=== PATIENT | female | born 1935 | race Caucasian/White ===

== ENCOUNTER 2024-10-31 12:40 | Inpatient (IN) | payer MEDICARE, MEDICAID ==
[~2024-10-31] VITALS: Ht 154.9 cm; Wt 57.7 kg
[2024-10-31 13:24] LABS: BASOPHILS % (AUTO) 0.1 % (0.0-2.0); EOSINOPHILS % (AUTO) 0.3 % (1.0-6.0); HEMATOCRIT 28.9 % (36-46); HEMOGLOBIN 9.3 g/dL (12.0-16.0); LYMPHOCYTES % (AUTO) 8.5 % (22.0-44.0); MEAN CORPUSCULAR HEMOGLOBIN 28.3 pg (26.0-34.0); MEAN CORPUSCULAR HGB CONC 32.2 G/dL (31.0-37.0); MEAN CORPUSCULAR VOLUME 88 fL (80-100); MONOCYTES # (AUTO) 0.4 K/uL (0.1-1.0); MONOCYTES % (AUTO) 3.8 % (2.0-9.0); NEUTROPHILS # (AUTO) 10.4 K/uL (1.8-7.7); PLATELET COUNT (AUTO) 243 K/uL (150-450); RED BLOOD CELL COUNT(AUTO) 3.29 MIL/uL (4.00-5.20); RED CELL DISTRIBUTION WIDTH 16.6 % (11.5-14.5); WHITE BLOOD COUNT (AUTO) 11.9 K/uL (4.5-11.0)
[2024-10-31 13:27] LABS: NEUTROPHILS % (AUTO) 87.3 % (40.0-70.0)
[2024-10-31 13:35] LABS: ANION GAP 5 mmol/L (8-16); CALCIUM, TOTAL 8.6 mg/dL (8.8-10.5); CARBON DIOXIDE 22 mmol/L (22-29); CHLORIDE 107 mmol/L (98-107); CREATININE 0.85 mg/dL (0.60-1.30); GLOMERULAR FILTR. RATE CALC > 60 mL/min (>60); GLUCOSE,RANDOM 93 mg/dL (70-110); POTASSIUM 5.2 mmol/L (3.5-5.1); SODIUM SERUM 134 mmol/L (136-145); UREA NITROGEN, BLOOD 20 mg/dL (7-18)
[2024-10-31 13:40] LABS: ALBUMIN 2.4 g/dL (3.4-5.0); BILIRUBIN,DIRECT 0.2 mg/dL (0.00-0.20); BILIRUBIN,TOTAL 0.5 mg/dL (0.1-1.0); TOTAL PROTEIN, SERUM 7.1 g/dL (6.4-8.2)
[2024-10-31 13:43] LABS: TROPONIN I-HIGH SENSITIVITY 7 ng/L (<51)
[2024-10-31] MEDS: SODIUM CHLORIDE 0.9% 1,550 ML IV ONE (13:52)
[2024-10-31] MEDS: CefTRIAXone 1 GM/DEXTROSE 50 ML IV ONE (13:52)
[2024-10-31 14:23] LABS: PROTHROMBIN TIME 10.4 SEC (9.4-11.6)
[2024-10-31 14:42] LABS: COVID AG,FIA SOURCE NASAL SWAB
[2024-10-31 15:09] LABS: SARS-COV2 (COVID) ANTIGEN,FIA Negative (Negative)
[2024-10-31 15:15] LABS: INFLUENZA TYPE A NEGATIVE FOR TYPE A (NEGATIVE); INFLUENZA TYPE B NEGATIVE FOR TYPE B (NEGATIVE)
[2024-10-31 18:37] LABS: APPEARANCE,URINE CLEAR (CLEAR); BILIRUBIN,URINE NEGATIVE (NEGATIVE); COLOR,URINE LIGHT YELLOW (YELLOW); GLUCOSE, URINE (UA) NEGATIVE (NEGATIVE); KETONES,URINE NEGATIVE (NEGATIVE); LEUKOCYTE ESTERASE ,URINE SMALL (NEGATIVE); NITRATE,URINE POSITIVE (NEGATIVE); OCCULT BLOOD,URINE NEGATIVE (NEGATIVE); PROTEIN,URINE NEGATIVE (NEGATIVE); UROBILINOGEN,URINE <=1.0 mg/dL (<=1.0)
[2024-10-31 19:31] LABS: BACTERIA,URINE Many /HPF (None Seen); RBC,URINE 0-2 /HPF (0-2)
[2024-10-31 19:32] LABS: SQUAMOUS EPITHELIAL CELL,UR Rare /LPF (None Seen)
[2024-10-31] MEDS ORDERED: ATOR20TA65 PO (21:01)
[2024-10-31] MEDS ORDERED: VIT1CAPS47 PO (21:01)
[2024-10-31] MEDS ORDERED: DONE-52 PO (21:01)
[2024-10-31] MEDS ORDERED: BRIM5DRO10 OU (21:01)
[2024-10-31] MEDS ORDERED: CHOL500045 PO (21:01)
[2024-10-31] MEDS ORDERED: ASPI-1444 PO (21:01)
[2024-10-31] MEDS ORDERED: AMLO2.5T29 PO (21:01)
[2024-10-31] MEDS ORDERED: METO-408 PO (21:01)
[2024-10-31] MEDS ORDERED: SERT-438 PO (21:01)
[2024-10-31] MEDS ORDERED: LOSA100T59 PO (21:01)
[2024-10-31] MEDS ORDERED: ONDA-243 PO (21:01)
[2024-10-31] MEDS ORDERED: DICL100G60 TP (21:01)
[2024-10-31] MEDS ORDERED: BACI1CAP14 PO (21:01)
[2024-10-31] MEDS ORDERED: METF-446 PO (21:01)
[2024-10-31] MEDS ORDERED: FAMO20 PO (21:01)
[2024-10-31] MEDS ORDERED: GABA-529 PO (21:01)
[2024-10-31] MEDS ORDERED: LATA2.5D14 OU (21:01)
[2024-10-31] MEDS ORDERED: ONDANSETRON 4 MG RAPDIS TABLET PO PRN (21:15)
[2024-10-31] MEDS: GABAPENTIN 100 MG CAPSULE PO SCH (21:35)
[2024-10-31] MEDS: FAMOTIDINE 20 MG TABLET PO SCH (21:35)
[2024-10-31] MEDS: LATANOPROST 0.005% 2.5 ML OPHTHALMIC SOLUTION OU SCH (22:00)
[2024-10-31] MEDS: DONEPEZIL HCL 5 MG TABLET PO SCH (22:00)
[2024-10-31] MEDS ORDERED: MORPHINE SULFATE 2 MG/ML SYRINGE IVP PRN (22:15)
[2024-10-31] MEDS ORDERED: HYDROCODONE/ACETAMINOPHEN 5-325 MG TABLET PO PRN (22:15)
[2024-10-31] MEDS ORDERED: BISACODYL 10 MG RECTAL RECTAL SUPPOSITORY PR PRN (22:15)
[2024-10-31] MEDS ORDERED: MAGNESIUM HYDROXIDE SUSPENSION 30 ML UDCUP PO PRN (22:15)
[2024-10-31] MEDS ORDERED: DEXTROSE 50%-WATER 25 GM/50 ML SYRINGE IVP PRN (22:15)
[2024-10-31] MEDS ORDERED: ALBUTEROL SULFATE 2.5 MG/0.5 ML NEB SOLUTION NEB PRN (22:15)
[2024-10-31] MEDS ORDERED: IPRATROPIUM BROMIDE 0.5 MG/2.5 ML NEB SOLUTION NEB PRN (22:15)
[2024-10-31 22:50] VITALS: BP 146/52; PULSE 75; RESP 18; TEMP 97.9; O2SAT 96
[2024-11-01] VITALS: BP 132/57; PULSE 72; RESP 18; TEMP 98.1; O2SAT 96
[2024-11-01] MEDS: HEPARIN SODIUM,PORCINE 5,000 UNITS/ML VIAL SQ SCH
[2024-11-01 04:00] VITALS: BP 118/46; PULSE 69; RESP 18; TEMP 98.3; O2SAT 94
[2024-11-01 06:36] LABS: BASOPHILS % (AUTO) 0.3 % (0.0-2.0); EOSINOPHILS % (AUTO) 1.8 % (1.0-6.0); HEMATOCRIT 24.9 % (36-46); HEMOGLOBIN 8.3 g/dL (12.0-16.0); LYMPHOCYTES # (AUTO) 1.7 K/uL (1.0-4.8); LYMPHOCYTES % (AUTO) 19.6 % (22.0-44.0); MEAN CORPUSCULAR HEMOGLOBIN 29.3 pg (26.0-34.0); MEAN CORPUSCULAR HGB CONC 33.5 G/dL (31.0-37.0); MEAN CORPUSCULAR VOLUME 88 fL (80-100); MONOCYTES # (AUTO) 0.4 K/uL (0.1-1.0); MONOCYTES % (AUTO) 5.2 % (2.0-9.0); NEUTROPHILS # (AUTO) 6.2 K/uL (1.8-7.7); NEUTROPHILS % (AUTO) 73.1 % (40.0-70.0); PLATELET COUNT (AUTO) 237 K/uL (150-450); RED BLOOD CELL COUNT(AUTO) 2.85 MIL/uL (4.00-5.20); RED CELL DISTRIBUTION WIDTH 16.3 % (11.5-14.5); WHITE BLOOD COUNT (AUTO) 8.5 K/uL (4.5-11.0)
[2024-11-01 06:47] LABS: ANION GAP 7 mmol/L (8-16); CALCIUM, TOTAL 8.1 mg/dL (8.8-10.5); CARBON DIOXIDE 22 mmol/L (22-29); CHLORIDE 110 mmol/L (98-107); CREATININE 0.71 mg/dL (0.60-1.30); GLOMERULAR FILTR. RATE CALC > 60 mL/min (>60); GLUCOSE,RANDOM 72 mg/dL (70-110); POTASSIUM 4.4 mmol/L (3.5-5.1); SODIUM SERUM 138 mmol/L (136-145); UREA NITROGEN, BLOOD 17 mg/dL (7-18)
[2024-11-01] MEDS: MetFORMIN HCL 500 MG TABLET PO SCH (08:00)
[2024-11-01 08:42] VITALS: BP 138/63; PULSE 78; RESP 18; TEMP 98.8; O2SAT 97
[2024-11-01] MEDS: METOPROLOL SUCCINATE 25 MG ER TABLET PO SCH (08:51)
[2024-11-01] MEDS: ASPIRIN 81 MG DR TABLET PO SCH (08:51)
[2024-11-01] MEDS: DOCUSATE SODIUM 100 MG CAPSULE PO SCH (08:51)
[2024-11-01] MEDS: AmLODIPine BESYLATE 2.5 MG TABLET PO SCH (08:51)
[2024-11-01] MEDS: PANTOPRAZOLE SODIUM 40 MG/VIAL IVP SCH (08:51)
[2024-11-01] MEDS: BRIMONIDINE TARTRATE 0.15% 5 ML OPHTHALMIC SOLUTION OU SCH (08:54)
[2024-11-01 11:25] VITALS: BP 144/60; PULSE 64; RESP 19; TEMP 97.8; O2SAT 97
[2024-11-01] MEDS ORDERED: SODIUM CHLORIDE 0.9% 500 ML IV ONE (14:35)
[2024-11-01] MEDS: CefTRIAXone 1 GM/DEXTROSE 50 ML IV SCH (15:01)
[2024-11-01 16:09] VITALS: BP 146/61; PULSE 73; RESP 18; TEMP 97.5; O2SAT 99
[2024-11-01 16:26] LABS: GLUCOMETER DEV NAME(LOC) 5N.1D; GLUCOSE,POINT OF CARE 95 MG/DL (70-110)
[2024-11-01] MEDS: ACETAMINOPHEN 325 MG TABLET PO PRN (18:49)
[2024-11-01 20:00] VITALS: BP 115/47; PULSE 67; RESP 18; TEMP 98.1; O2SAT 97
[2024-11-01] MEDS: ATORVASTATIN CALCIUM 20 MG TABLET PO SCH (20:19)
[2024-11-02] VITALS: BP 117/62; PULSE 62; RESP 20; TEMP 97.6; O2SAT 97
[2024-11-02] MEDS: BENZONATATE 100 MG CAPSULE PO PRN (00:26)
[2024-11-02 04:18] VITALS: BP 119/53; PULSE 60; RESP 18; O2SAT 98
[2024-11-02 06:21] LABS: BASOPHILS % (AUTO) 0.3 % (0.0-2.0); EOSINOPHILS % (AUTO) 3.5 % (1.0-6.0); HEMATOCRIT 26.9 % (36-46); HEMOGLOBIN 8.9 g/dL (12.0-16.0); LYMPHOCYTES % (AUTO) 27.1 % (22.0-44.0); MEAN CORPUSCULAR VOLUME 88 fL (80-100); MONOCYTES # (AUTO) 0.5 K/uL (0.1-1.0); MONOCYTES % (AUTO) 7.4 % (2.0-9.0); NEUTROPHILS # (AUTO) 4.6 K/uL (1.8-7.7); NEUTROPHILS % (AUTO) 61.7 % (40.0-70.0); PLATELET COUNT (AUTO) 251 K/uL (150-450); RED BLOOD CELL COUNT(AUTO) 3.07 MIL/uL (4.00-5.20); RED CELL DISTRIBUTION WIDTH 16.6 % (11.5-14.5); WHITE BLOOD COUNT (AUTO) 7.4 K/uL (4.5-11.0)
[2024-11-02 06:37] LABS: ANION GAP 8 mmol/L (8-16); CALCIUM, TOTAL 8.7 mg/dL (8.8-10.5); CARBON DIOXIDE 22 mmol/L (22-29); CHLORIDE 109 mmol/L (98-107); CREATININE 0.75 mg/dL (0.60-1.30); GLOMERULAR FILTR. RATE CALC > 60 mL/min (>60); GLUCOSE,RANDOM 77 mg/dL (70-110); SODIUM SERUM 139 mmol/L (136-145); UREA NITROGEN, BLOOD 12 mg/dL (7-18)
[2024-11-02 08:00] VITALS: BP 117/56; PULSE 61; RESP 18; TEMP 97.5; O2SAT 99
[2024-11-02] MEDS: ONDANSETRON HCL 4 MG/2 ML VIAL IVP PRN (14:50)
[2024-11-02 16:35] VITALS: BP 100/46; PULSE 72; RESP 18; TEMP 97.9; O2SAT 98
[2024-11-02 20:10] VITALS: BP 119/59; PULSE 79; RESP 18; TEMP 98.2; O2SAT 98
[2024-11-02] MEDS: ZOLPIDEM TARTRATE 5 MG TABLET PO PRN (23:48)
[2024-11-03 00:34] VITALS: BP 97/50; PULSE 72; RESP 17; TEMP 98.1; O2SAT 96
[2024-11-03 03:28] VITALS: BP 127/50; PULSE 66; RESP 18; TEMP 98.1; O2SAT 97
[2024-11-03 06:35] LABS: BASOPHILS % (AUTO) 0.2 % (0.0-2.0); EOSINOPHILS % (AUTO) 3.1 % (1.0-6.0); HEMATOCRIT 24.9 % (36-46); HEMOGLOBIN 8.2 g/dL (12.0-16.0); LYMPHOCYTES # (AUTO) 1.9 K/uL (1.0-4.8); LYMPHOCYTES % (AUTO) 24.2 % (22.0-44.0); MEAN CORPUSCULAR HEMOGLOBIN 28.8 pg (26.0-34.0); MEAN CORPUSCULAR VOLUME 87 fL (80-100); MONOCYTES # (AUTO) 0.6 K/uL (0.1-1.0); MONOCYTES % (AUTO) 8.2 % (2.0-9.0); NEUTROPHILS % (AUTO) 64.3 % (40.0-70.0); PLATELET COUNT (AUTO) 256 K/uL (150-450); RED BLOOD CELL COUNT(AUTO) 2.84 MIL/uL (4.00-5.20); RED CELL DISTRIBUTION WIDTH 16.5 % (11.5-14.5); WHITE BLOOD COUNT (AUTO) 7.8 K/uL (4.5-11.0)
[2024-11-03 06:47] LABS: ANION GAP 7 mmol/L (8-16); CALCIUM, TOTAL 8.4 mg/dL (8.8-10.5); CARBON DIOXIDE 24 mmol/L (22-29); CHLORIDE 109 mmol/L (98-107); CREATININE 0.82 mg/dL (0.60-1.30); GLOMERULAR FILTR. RATE CALC > 60 mL/min (>60); GLUCOSE,RANDOM 108 mg/dL (70-110); POTASSIUM 4.2 mmol/L (3.5-5.1); SODIUM SERUM 139 mmol/L (136-145); UREA NITROGEN, BLOOD 11 mg/dL (7-18)
[2024-11-03 07:23] VITALS: BP 117/51; PULSE 70; RESP 18; TEMP 98.6; O2SAT 97
[2024-11-03 11:56] VITALS: BP 115/54; PULSE 67; RESP 18; TEMP 98.2; O2SAT 97
[2024-11-03] MEDS ORDERED: SODIUM CHLORIDE 0.9% 500 ML IV ONE (15:19)
[2024-11-03] MEDS: PIPERACILLIN/TAZO 3.375 GM/D5W 50 ML IV SCH (15:25)
[2024-11-03 17:35] VITALS: BP 158/71; PULSE 74; RESP 16; TEMP 97.9; O2SAT 98
[2024-11-03 20:04] VITALS: BP 144/58; PULSE 74; RESP 20; TEMP 97.7; O2SAT 97
[2024-11-04 05:31] VITALS: BP 121/55; PULSE 67; RESP 20; TEMP 97.9; O2SAT 95
[2024-11-04 08:08] VITALS: BP 138/59; PULSE 68; RESP 16; TEMP 97.5; O2SAT 98
[2024-11-04 11:50] LABS: GLUCOMETER DEV NAME(LOC) 6N.1B; GLUCOSE,POINT OF CARE 100 MG/DL (70-110)
[2024-11-04] MEDS ORDERED: PIPE3.3719 IV (14:43)
[2024-11-04] MEDS ORDERED: BENZ-227 PO (14:44)
[2024-11-04] MEDS ORDERED: ALBU2.5V39 NEB (14:44)
[2024-11-04] MEDS ORDERED: MAGN-169 PO (14:45)
== END 2024-11-04 16:15 | DRG 73 ==
LOC: EMS 12:44 → EDH 15:28 → 5S 22:10 → 4E 11-03 14:45 → UNDODISIN 11-04 12:09
PROVIDERS: ADMIT Hospitalist; ATTEND Hospitalist
DX: G90.89 Other disorders of autonomic nervous system (principal); E43 Unspecified severe protein-calorie malnutrition; J18.9 Pneumonia, unspecified organism; E87.1 Hypo-osmolality and hyponatremia; N39.0 Urinary tract infection, site not specified; I95.9 Hypotension, unspecified; Z20.822 Contact with and (suspected) exposure to COVID-19; E87.5 Hyperkalemia; I10 Essential (primary) hypertension; D64.9 Anemia, unspecified; F03.90 Unspecified dementia, unspecified severity, without behavioral disturbance, psychotic disturbance, mood disturbance, and anxiety; Z87.440 Personal history of urinary (tract) infections; Z86.73 Personal history of transient ischemic attack (TIA), and cerebral infarction without residual deficits; Z68.24 Body mass index [BMI] 24.0-24.9, adult; E11.9 Type 2 diabetes mellitus without complications
CPT/HCPCS: 71045; 80048; 80076; 81001; 82550; 82962; 83605; 83880; 84145; 84484; 85025; 85610; 87040; 87077; 87081; 87086; 87186; 87804; 92610; 93005; 97110; 97162; 97167; 97530; 99291; G0378; J0696; J1644; J2405; J2470; J2543; J7040; 36415-L1; 36415-TC